=== PATIENT | male | born 1995 | race African-American/Black ===

== ENCOUNTER 2017-01-12 17:15 | Emergency (ER) | payer OTHER ==
[~2017-01-12] VITALS: Ht 188 cm; Wt 78.0 kg
[~2017-01-12 17:15] MED LIST: HYDR2.5%T PR
[2017-01-12 17:17] VITALS: BP 157/83; PULSE 116; RESP 16; TEMP 99; O2SAT 100
[2017-01-12] MEDS ORDERED: IBUPROFEN 800 MG TAB PO ONE (17:45)
--- NOTE | 2017-01-12 17:53 | PD ---
HPI Chief Complaint: Cold / Flu Symptoms Time Seen by Provider: 17:42 Travel History International Travel<30 days: No Contact w/Intl Traveler<30days: No Traveled to known affect area: No History of Present Illness HPI 21-year-old male presents to the emergency Department with complaint of sore throat and body aches 3 days. Does not know if he has had fever today hasn't checked his temperature. Denies limp and throat, difficulty swallowing, unusual drooling. Denies ear pain. Denies cough. Denies chest pain, shortness of breath, abdominal pain, nausea, vomiting. Denies change in urine or stool. Was seen by his school nurse and was given Mucinex with no relief of symptoms. Has not taken any other medications or tried any treatments to alleviate his symptoms. No known aggravating or relieving factors. No known allergies. Denies significant past medical history. No other modifying factors or associated signs and symptoms. PFSH Past Medical History Medical History: Denies Significant Hx Diminished Hearing: No Social History Alcohol Use: No Tobacco Use: No Substance Use: No Allergies-Medications (Allergen,Severity, Reaction): Coded Allergies: No Known Allergies (Unverified , 01/12/17) Reported Meds & Prescriptions Reported Meds & Active Scripts Active Ibuprofen 800 Mg Tab 800 Mg PO Q6HR PRN Magic Mouthwash Adult Liq (Multi-Ingredient Mouthwash/Gargle) 120 Ml Susp 5 Ml SWISH-SPIT Q3HR PRN Each 5mL contains: Nystatin 200,000units, Diphenhydramine 4.25mg, Viscous Lidocaine 10mg, Sol syrup 0.8 mL Review of Systems Except as stated in HPI: all other systems reviewed are Neg Physical Exam Narrative GENERAL: Well-nourished, well-developed male patient, in no acute distress; low-grade fever 99.0. Nontoxic-appearing. SKIN: Warm and dry. No rash. HEAD: Atraumatic. Normocephalic. EYES: Pupils equal and round at 3 mm with brisk reaction. No scleral icterus. No injection or drainage. PERRLA. ENT: Mucosa pink and moist. Oral pharynx with erythema; without exudate or edema. No uvular edema. No uvular, palatal, or tonsillar deviation. Airway patent. EARS: Bilateral pinnae and external canals appear within normal limits. Bilateral tympanic membranes without erythema, dullness or perforation. NECK: Trachea midline. No anterior cervical lymphadenopathy or tenderness on palpation. CARDIOVASCULAR: Regular rate and rhythm. No murmur appreciated. RESPIRATORY: No accessory muscle use. Clear to auscultation. Breath sounds equal bilaterally. GASTROINTESTINAL: Abdomen soft, non-tender, nondistended. Hepatic and splenic margins not palpable. Bowel sounds are active 4 quadrants. MUSCULOSKELETAL: No obvious deformities. No clubbing. No cyanosis. No edema. NEUROLOGICAL: Awake and alert. Oriented 3. No obvious cranial nerve deficits. Motor grossly within normal limits. Normal speech. Moves all extremities. 5/5 strength to all extremities. PSYCHIATRIC: Appropriate mood and affect; insight and judgment normal. Data Data Last Documented VS Vital Signs Date Time Temp Pulse Resp B/P Pulse Ox O2 Delivery O2 Flow Rate FiO2 01/12/17 17:17 99.0 116 16 157/83 100 Orders Influenzae A/B Antigen (01/12/17 17:28) Group A Rapid Strep Screen (01/12/17 17:28) Ibuprofen (Motrin) (01/12/17 17:45) Strep Culture (Group A) (01/12/17 17:50) MDM Medical Decision Making Medical Screen Exam Complete: Yes Emergency Medical Condition: Yes Medical Record Reviewed: Yes Differential Diagnosis Strep pharyngitis, viral pharyngitis, viral illness, influenza Narrative Course 21-year-old male with sore throat and body aches. Patient with low-grade fever 99.0 and the ER. He is nontoxic-appearing. He has not taken his temperature at home and cannot report MAXIMUM TEMPERATURE. Ibuprofen administered in the ER. Rapid strep and influenza ordered. 1830: Influenza negative. Rapid strep negative. Suspecting viral illness. On reexamination heart rate recheck approximately 90 bpm. Discussed viral illness and symptom management with the patient and he verbalized understanding and agreement. Ibuprofen, Magic mouthwash prescribed for home. Patient is medically cleared and stable for discharge. Discussed reasons to return to the emergency department. Instructed patient to follow up with primary care provider. Patient agrees with treatment plan. The patients vital signs are stable and the patient is stable for outpatient follow-up and treatment. Patient discharged home, stable and in no acute distress. Diagnosis Primary Impression: Viral illness Referrals: Primary Care Physician Patient Instructions: Cold Symptoms (ED), General Instructions, Pharyngitis (ED ), Safe Use of Cough and Cold Medicines (ED) Departure Forms: School Release, Return to School Date: Jan 14, 2017 Tests/Procedures Additional Instructions: Get plenty of sleep/rest Rest your voice Drink plenty of fluids to prevent dehydration Use warm saltwater gargles to soothe throat pain Use an air humidifier/turn off ceiling fans Use throat lozenges as needed for sore throat Use ibuprofen or acetaminophen as needed to relieve pain and fever Follow-up with your primary care provider within 2-4 days Return immediately to the emergency department with worsening of symptoms Med/Other Pt SpecificInfo: Prescription(s) given ( ) Scripts Ibuprofen 800 Mg [id number] Mg PO Q6HR PRN (PAIN) #30 TAB Ref 0 Prov:Joy Gan 01/12/17 Ejzctbsr-Khzpkqovckdsekq-Xkdwbqgib Liq (Magic Mouthwash Adult Liq)120 Ml Susp5 Ml SWISH-SPIT Q3HR PRN (SORE THROAT) #120 ML Ref 0 Each 5mL contains: Nystatin 200,000units, Diphenhydramine 4.25mg, Viscous Lidocaine 10mg, Sol syrup 0.8 mL Prov:Joy Gan 01/12/17 Disposition: 01 DISCHARGE HOME Condition: Stable Joy Gan Jan 12, 2017 17:53
[2017-01-12] MEDS ORDERED: IBUP800T23 PO (18:33)
[2017-01-12] MEDS ORDERED: MAGICADU2 SWISH-SPIT (18:33)
== END 2017-01-12 18:45 | disposition home or self-care (01) ==
LOC: NEPB 17:15
DX: B34.9 Viral infection, unspecified (principal); J02.9 Acute pharyngitis, unspecified
CPT/HCPCS: 87081; 87804; 87880; 99283